=== PATIENT | female | born 1995 | race African-American/Black ===

== ENCOUNTER 2023-06-27 00:19 | Inpatient (IN) | payer OTHER, SELFPAY ==
[2023-06-27] VITALS (35 sets, daily range): BP systolic 87–146; BP diastolic 41–109; PULSE 26–151; RESP 16–18; TEMP 36.7–37.5; O2SAT 78–100
[2023-06-27] MEDS: LACTATED RINGERS 1,000 ML 125 ML IV CONT (00:44)
[2023-06-27] MEDS: OXYTOCIN 30 UNITS/NS 500 ML 30 UNITS/500 ML BAG 999 UNITS IV CONT (00:50)
--- NOTE | 2023-06-27 00:52 | PM.OBPRVD ---
OB - Delivery Note Procedure Delivery date: 06/27/23 Procedure: Induction method: None Delivery monitor: External FHT and External Uterine Route of delivery: Episiotomy description: None Laceration Description: None Quantitative Blood Loss (ml): 100 Anesthesia type: None Disposition: Floor [place] Baby Date of : 06/27/23 Time of : 00:44 Weeks of gestation at delivery: 38 gender: Female presentation: vertex score one minute: 8 score five minutes: 9
--- NOTE | 2023-06-27 00:55 | WPDHPUPDATE1 ---
History and Physical Update Update Date/Time: 06/27/23 00:55 History and Physical has been reviewed, including an updated exam of the patient. There are NO changes in the patient's condition. Risks, benefits, and alternatives have been discussed and questions answered. Patient agrees to proceed with procedure.
[2023-06-27 01:00] LABS: Basophils Percent Auto 0.2 % (0.2-1.2); Eosinophils Percent Auto 0.1 % (0-4.4); Hematocrit 30.9 % (37.0-47.0); Hemoglobin 10.4 g/dL (12.0-15.0); Immature Granulocyte Absolute 0.09 K/mm3 (0.00-0.031); Immature Granulocyte Percent A 0.6 % (0-0.5); Lymphocytes Absolute Auto 1.53 K/mm3 (0.9-3.2); Lymphocytes Percent Auto 9.6 % (18.3-44.2); Mean Corpuscular HGB Conc 33.7 g/dl (32-36); Mean Corpuscular Hemoglobin 31.1 pg (26-34); Mean Corpuscular Volume 92.5 fl (80-100); Mean Platelet Volume 10.3 fl (7.4-10.4); Monocytes Absolute Auto 0.9 K/mm3 (0.1-0.6); Monocytes Percent Auto 5.7 % (2.6-8.5); Neutrophils Absolute Auto 13.4 K/mm3 (1.3-6.7); Neutrophils Percent Auto 83.8 % (45.5-73.1); Platelet Count Result 285 k/mm3 (150-375); Red Blood Count 3.34 M/mm3 (4.2-5.4); Red Cell Distribution Width 13.3 % (11.5-14.5)
[2023-06-27] MEDS: OXYTOCIN 30 UNITS/NS 500 ML 30 UNITS/500 ML BAG 125 UNITS IV CONT (01:25)
--- NOTE | 2023-06-27 01:35 | LDADM ---
This patient, Ruby Guillen, was admitted to Labor/Delivery/Recovery 106 on 06/27/23 at 00:19. Plans for labor, pain management and were discussed with patient. Patient/family oriented to hospital policies and general routines including ID bracelet, bed and alarms, visiting hours, pain management, procedures, bathroom and other care routines, personal items, smoking policy, room service/diet and guest tray routines, infant security routines, and visiting hours. Patient/Family are encouraged to report perceived risks to care and to ask questions if they do not understand what they are told or what they should do. See OBIX for further documentation.
[2023-06-27] MEDS: KETOROLAC 30 MG/ML VIAL (*BKC) IV PUSH (01:50)
--- NOTE | 2023-06-27 01:55 | PC.NURSE ---
Patient refused NORCO because she didnt want to be sleepy. Patient rated pain time of Toradol between a 5-7.
[2023-06-27] MEDS: ACETAMINOPHEN 325 MG TABLET 650 MG PO ×2 (03:55→12:18)
[2023-06-27] MEDS: MULTIVIT/MIN/PREN/FOL AC/IRON TABLET 1 TAB PO (07:33)
[2023-06-27] MEDS: IBUPROFEN 600 MG TABLET PO ×2 (07:33→18:28)
[2023-06-27] MEDS: DOCUSATE SODIUM 100 MG CAPSULE PO (07:33)
[2023-06-27 12:36] LABS: Rapid Plasma Reagin Non-Reactive (NonReactive)
--- NOTE | 2023-06-27 16:25 | PC.NURSE ---
[id number] Purposefully rounded to assess needs. Mother verbalizes she is able to independently latch infant with appropriate positioning/alignment. She denies any nipple discomfort and is responsively . is currently meeting outcomes for weight, output, jaundice and feeding frequencies of 8-12 times in 24 hours. Mother declines any additional assistance/education at this time. Mother is encouraged to call for assistance if her doesn?t latch, how to visualize swallowing, there is discomfort with latching, protecting the nipple with a deep latch avoided shallow misshaped nipples. Mother voiced understanding of information shared and is confident. Infant has had 3 voids and 4 stools since and mother breastfed her first child for 15 months.
[2023-06-28 01:25] VITALS: BP 90/49; PULSE 61; RESP 16; TEMP 36.9; O2SAT 97
[2023-06-28 05:07] LABS: Hematocrit 27.9 % (37.0-47.0); Hemoglobin 9.2 g/dL (12.0-15.0)
[2023-06-28 07:45] VITALS: BP 120/72; PULSE 68; RESP 18; TEMP 37.3; O2SAT 100
[2023-06-28] MEDS: POLYSACCHARIDE IRON COMPLEX 150 MG CAPSULE PO ×2 (08:41→15:51)
[2023-06-28] MEDS: DOCUSATE SODIUM 100 MG CAPSULE PO ×2 (08:42→15:51)
[2023-06-28] MEDS: MULTIVIT/MIN/PREN/FOL AC/IRON TABLET 1 TAB PO (08:42)
[2023-06-28] MEDS: IBUPROFEN 600 MG TABLET PO ×3 (08:42→21:43)
--- NOTE | 2023-06-28 11:05 | PC.NURSE ---
Patient viewed the discharge video Mother & Baby Care, The First Two Weeks . Patient was given the opportunity and encouraged to ask questions. Patient verbalized understanding of information shared and has been given the mother/baby guide for home reference.
--- NOTE | 2023-06-28 13:42 | PC.NURSE ---
[id number] Consulted with patient to assess needs related to . Mother led conversation with her experience with feeding baby so far. Mother works well with her infant. Reviewed working with a infant, supporting breast, good positioning and protecting the nipples with an optimal deep latch. Encouraged responding to feeding cues and frequencies of feeding 8-12 times in 24 hours (approximately 2-3 hours), duration of feedings, milk production, intake/output feeding sheet and signs of adequate intake encouraging swallowing at the breast. Reviewed positioning and alignment, supporting breast, off-centered (asymmetrical latch) and leading with the chin with big, open, wide gape for a deeper latch. Infant latched optimally to the right breast in cross cradle position. Education given to mother of how to visualize suck/swallow ratios, listen for drinking at the breast as demonstrates very well. was able to maintain latch without discomfort to mother. Nipple care reviewed with optimal latch, good positioning and using clean hands when feeding her infant and touching her breast. Resources used to facilitate learning were used from the mom and baby guide. Mother voiced understanding of the education shared, to call for assistance if the infant does not latch or if there is discomfort with . Reported to the primary RN.
[2023-06-28 21:34] VITALS: BP 108/46; PULSE 71; RESP 18; TEMP 37; O2SAT 97
--- NOTE | 2023-06-29 07:41 | PM.OBPNVD ---
OB - PN: Subj Subjective Date/time seen: 06/29/23 07:41 Interval history: pp day 2 doing well, no pain would like d/c home OB - PN: Obj Data Labs 06/28/23 04:34 OB - PN A/P Plan day: 2 Plan: routine care Time Spent With Patient Time: Total time spent is greater than 50% in coordination of care (as documented) at patient's floor/unit and/or counseling patient: Review of Systems Review of Systems: All systems reviewed & are unremarkable except as noted in HPI and below Exam Const: General: cooperative, healthy appearing and comfortable Resp: Effort & Inspection: normal respiratory effort Cardio: Rate: regular rate Rhythm: regular rhythm GI: Other: soft Skin: General skin exam: no rashes or lesions noted Neuro: General: patient oriented x3 Extrem: Right lower extremity: normal to inspection Left lower extremity: normal to inspection Psych: Appearance: grossly normal
--- NOTE | 2023-06-29 07:43 | PM.OBDSVD ---
DS: Admitting Diagnosis Discharge Date 06/29/23 Admitting Diagnosis labor DS: Discharge Diagnosis Discharge Diagnosis (1) Vaginal delivery: Code(s): O80 - Encounter for full-term uncomplicated delivery Status: Acute OB - DS: Summary OB Procedures : None OB Procedures Intrapartum: Spontaneous Vag Delivery OB Procedures: : None Time Spent with Patient Time attestation: Total time spent providing and/or coordinating discharge services: Discharge Plan Discharge Attending physician on discharge: Fidelia Cuellar Discharging Clinician: Jazmyn Casey Patient Disposition: Home, Self-Care Activity: pelvic rest Diet: regular Patient Instructions: Antibiotic Form Stand Alone Forms: General Discharge Information Follow-up/Referrals: Fidelia Cuellar MD [Physician] - 1 Week Discharge Medications: Continued ferrous sulfate 325 mg (65 mg iron) Tablet 325 mg PO DAILY Classic 28 mg iron- 800 mcg Tablet 1 tablet PO DAILY Date of admission: 06/27/23 00:19 Primary Care Provider: PHYSICIAN,BLACK TOP MACHINE OPERATOR Admitting Provider: Fidelia Cuellar Attending physician on admission: Fidelia Cuellar Condition: Stable
--- NOTE | 2023-06-29 08:00 | PC.NURSE ---
PT introductions made and plan of care discussed per post , pain management, daily care activities and pending discharge to home. PT sole recipients of such instructions and no barriers to learning identified at this time. PT received such instructions per one to one discussion, mom baby care guide and demonstrations this shift. PT verbalized understanding of such care.
[2023-06-29 08:05] VITALS: BP 119/74; PULSE 64; RESP 18; TEMP 36.9; O2SAT 100
[2023-06-29] MEDS: DOCUSATE SODIUM 100 MG CAPSULE PO (09:54)
[2023-06-29] MEDS: POLYSACCHARIDE IRON COMPLEX 150 MG CAPSULE PO (09:55)
[2023-06-29] MEDS: MULTIVIT/MIN/PREN/FOL AC/IRON TABLET 1 TAB PO (09:55)
[2023-06-29] MEDS: ACETAMINOPHEN 325 MG TABLET 650 MG PO (09:55)
[2023-06-29 09:56] VITALS: PULSE 64; RESP 18; O2SAT 100
[2023-06-29] MEDS: IBUPROFEN 600 MG TABLET PO (09:56)
--- NOTE | 2023-06-29 11:45 | PC.NURSE ---
Patient was given the opportunity to view the discharge video Mother & Baby Care, The First Two Weeks and to ask questions. Patient declined viewing the video and has been given the mother/baby guide for home reference. PT received discharge instructions per protocol and verbalized understanding of such instructions.
--- NOTE | 2023-06-29 12:54 | PC.NURSE ---
PT discharged to home ambulatory accompanied by spouse and and taken to waiting car. Follow up appts confirmed
--- NOTE | 2023-06-29 15:28 | PC.NURSE ---
[id number] Mother led the conversation with her experience and plan to feed her so far and her ability to independently latch optimally without discomfort. Mother is feeding appropriately for growth of and understands stimulating infant to eat if needed. has had appropriate feedings in the last 24 hours meets the outcomes for weight (9.53%loss), output and jaundice at this time. Mother states she is confident to continue effectively her at home and she feels her milk has increased, when to call for assistance and denies any additional assistance or education at this time. Reinforced understanding of milk production, transition of milk, signs of adequate intake, transition of stool, prevention/relief of engorgement, plugged ducts, mastitis, responsive watching for feeding cues, the different methods of stimulating to breastfeed 2-3 hours after the start of the last feeding, community resources, when to call a provider using the resource of the mom and baby guide. Mother voiced understanding of the education shared.
[2023-06-30 09:25] VITALS: BP 125/72; PULSE 70; RESP 18; TEMP 37.2; O2SAT 100
== END 2023-06-29 12:54 | disposition home or self-care (01) | DRG 560 ==
LOC: ANHLDR 00:32 → ANHOB2 03:32
PROVIDERS: Admitting Provider Obstetrics & Gynecology; Visit Provider Obstetrics & Gynecology
DX: O62.3 Precipitate labor (principal); Z37.0 Single live birth; Z3A.39 39 weeks gestation of pregnancy
CPT/HCPCS: 36415; 85014; 85018; 85025; 86592; 86850; 86900; 86901; A9270; J1885; J2590; J7120

== ENCOUNTER 2025-02-06 11:42 | Outpatient (CLI) | payer SELFPAY ==
--- NOTE | ~2025-02-06 | XR_ITS ---
Clinical Indication: Preoperative evaluation PA and lateral views of the chest: Comparison: None Findings: The lungs are clear, without evidence of focal consolidation or pleural effusion. Cardiome diastinal silhouette is within normal limits. Bones and soft tissues are unremarkable. Impression: Normal chest. Reviewed, dictated and finalized at location . Impression: Normal chest.
--- OUTSIDE RECORDS SUMMARY | 2025-02-06 13:25 | XMS_ITS | Data Portability ---
[facility] Address [address] [place] [address] Assessment No assessment recorded. Plan of Treatment Reminders Order Date Submit Date Provider Last Modified By Organization Details Last Modified Time Details Appointments None recorded. Lab MMR immunity, serum 2016 017 [facility], [address] [place] [address], [address], [place], [address], 7 17:09:38 hepatitis B surface Ab, quantitati ve, serum 2016 017 [facility], [address] [place] [address], [address], [place], [address], 7 17:09:39 HBsAg (hepatitis B surface Ag), EIA, serum 2016 017 [facility], [address] [place] [address], [address], [place], [address], 7 11:20:25 hepatitis B surface Ab, qualitativ e, serum 2016 017 [facility], [address] [place] [address], [address], [place], [address], 7 17:09:39 hepatitis panel (A+B+C), acute, serum 2016 017 [facility], [address] [place] [address], [address], [place], [address], 7 17:09:37 vzv (varicella -zoster) igg+igm Ab, serum 2016 017 [facility], [address], [address], [place], [address], 7 17:09:38 PPD (purified protein derivative ), skin test 2016 017 [facility] In-Office Order, Internal Use Only DO Not Attach Compendium DO Not Attach Compendium, Do Not Delete/merge, [id number] 7 09:29:12 Referral None recorded. Procedures None recorded. Surgeries None recorded. Imaging None recorded. Medication Orders None recorded. Patient TargetsNo targets recorded. Patient Instructions Encounter Date Encounter Id Patient Instructions Last Modified By Organization Details Last Modified Time 05/17/2017 [id number] CCome in on May 23 , free visit , no charge . See Myra for a tb skin test , return to have it read on [email or web address] Not available 05/17/2017 13:50:22 Reason for Referral None Reported. Results Created Date Observation Date Name Description Value Unit Range Abnormal Flag Note LastModifiedBy Organization Detail LastModifiedTime 06/17/20 17 06/18/2017 hepat itis panel (A+B+ C), acute , serum hep A Ab, IgM NEGATI VE negati ve Not Available [facility] ([facility]) [address] [place], [address], 06/20/2017 17:09:37 06/17/20 17 06/18/2017 hepat itis panel (A+B+ C), acute , serum HBsAg screen NEGATI VE negati ve Not Available [facility] ([facility]) [address] [place], [address], 06/20/2017 17:09:37 06/17/20 17 06/18/2017 hepat itis panel (A+B+ C), acute , serum hep B core Ab, IgM NEGATI VE negati ve Not Available [facility] ([facility]) [address] [facility] [place], [address], 06/20/2017 17:09:37 06/17/20 17 06/18/2017 hepat itis panel (A+B+ C), acute , serum hep C virus Ab <0.1 S/co_ ratio 0.0-0. 9 NEGAT KAMRAN: < 0.8 INDET ERMIN ATE: 0.8 - 0.9 POSIT KAMRAN: > 0.9 [facility] RECOM MENDS THAT A POSIT KAMRAN HCV ANTIB LENNY RESUL T BE FOLLO WED UP WITH A HCV NUCLE IC ACID AMPLI FICAT ION TEST ([phone]). Not Available [facility] ([facility]) [address] [facility], [place], [address], 06/20/2017 17:09:37 06/17/20 17 06/18/2017 MMR immun ity, serum rubella antibodies, IgG 6.73 index immune >0.99 NON-I MMUNE <0.90 EQUIV OCAL 0.90 - 0.99 IMMUN E >0.99 Not Available [facility] ([facility]) [address] [facility], [place], [address], 06/20/2017 17:09:37 06/17/20 17 06/18/2017 MMR immun ity, serum rubeola Ab, IgG 165.0 AU/mL immune >29.9 NEGAT KAMRAN <25.0 EQUIV OCAL 25.0 - 29.9 POSIT KAMRAN >29.9 PRESE NCE OF ANTIB ODIES TO RUBEO LA IS PRESU MPTIV E EVIDE NCE OF IMMUN ITY EXCEP T WHEN ACUTE INFEC TION IS SUSPE CTED. Not Available [facility] ([facility]) [address] [facility], [place], [address], 06/20/2017 17:09:37 06/17/20 17 06/18/2017 MMR immun ity, serum mumps abs, IgG >300.0 AU/mL immune >10.9 NEGAT KAMRAN <9.0 EQUIV OCAL 9.0 - 10.9 POSIT KAMRAN >10.9 A POSIT KAMRAN RESUL T GENER ALLY INDIC ATES PAST EXPOS URE TO MUMPS VIRUS OR PREVI OUS VACCI NATIO N. Not Available [facility] ([facility]) [address] [place], [address], 06/20/2017 17:09:37 06/17/20 17 06/18/2017 vzv (vari cameron -zost er) igg+i gm Ab, serum varicella zoster IgG <135 index immune >165 below low normal NEGAT KAMRAN <135 EQUIV OCAL 135 - 165 POSIT KAMRAN >165 A POSIT KAMRAN RESUL T GENER ALLY INDIC ATES EXPOS URE TO THE PATHO GEN OR ADMIN ISTRA TION OF SPECI FIC IMMUN OGLOB ULINS , BUT IT IS NOT INDIC ATION OF ACTIV E INFEC TION OR STAGE OF DISEA SE. Not Available [facility] ([facility]) [address] [place], [address], 06/20/2017 17:09:38 06/17/20 17 06/20/2017 vzv (vari cameron -zost er) igg+i gm Ab, serum varicella-zo ster Ab, IgM <0.91 index 0.00-0 .90 NEGAT KAMRAN <0.91 BORDE RLINE 0.91 - 1.09 POSIT KAMRAN >1.09 Not Available [facility] ([facility]) [address] [place], [address], 06/20/2017 17:09:38 06/17/20 17 06/18/2017 hepat itis B surfa ce Ab, quali tativ e, serum hep B surface Ab, qual NON REACTI VE NON REACT KAMRAN: INCON SISTE NT WITH IMMUN ITY, LESS THAN 10 MIU/M L REACT KAMRAN: CONSI STENT WITH IMMUN ITY, GREAT ER THAN 9.9 MIU/M L Not Available [facility] ([facility]) [address] [place], [address], 06/20/2017 17:09:39 06/17/20 17 06/18/2017 hepat itis B surfa ce Ab, quant itati ve, serum hepatitis B surf Ab quant 3.8 mIU/m L immuni ty>9.9 below low normal STATU S OF IMMUN ITY ANTI- HBS LEVEL ----- ----- ----- --- ----- ----- ---- INCON SISTE NT WITH IMMUN ITY 0.0 - 9.9 CONSI STENT WITH IMMUN ITY >9.9 Not Available [facility] ([facility]) [address] [facility], [place], [address], 06/20/2017 17:09:39 Result Notes None recorded. Problems Name Problem SNOMED Code Status Onset Date Resolution Date Notes Provider Name and Address Organization Details Recorded Time Screening for disorder Active 2016 Myke Livingston PA-C Attn: Jamie munoz,[address] [place], [address], [place] - [facility] 7 11:19:21 Tuberculosis screening Active 2016 Myek Livingston PA-C Attn: Jamie munoz,[address] [place], [address], [place] [facility] 7 11:30:12 Requires course of hepatitis B vaccination 906274102 Active 2016 Myke Livingston PA-C Attn: Jamie munoz,[address] [place], [address], [place] [facility] 7 13:02:37 Requires varicella vaccination 920787986 Active 2016 Myke Livingston PA-C Attn: Kyrageoffrey munoz,[address] [place], [address], [place] [facility] 7 13:04:06 Requires a hepatitis A vaccination 010741061 Active 2016 Myke Livingston PA-C Attn: Kyrageoffrey munoz,[address] [place], [address], [place] [facility] 7 17:00:15 Problem Notes None recorded. Medical Equipment None Reported. Allergies Allergen ID Allergen Name Allergen Category Reaction Reaction Severity Criticality Documentation Date Start Date Code Code System Note Provider Name and Address Organization Details Recorded Time 17632 Product containin g penicilli n (product) medicatio n hives severe Not available 05/17/2017 [id number] SNOMED Not Available Not Available Not Available Medications Name Sig Start Date Stop Date Status Note LastModified by Organization Details LastModified Time azithromycin 250 mg tablet active Not Available Not Availabl e Not Available prednisone 20 mg tablet TAKE 1 TABLET BY MOUTH EVERY DAY FOR 5 DAYS active Not Available Not Available No t Available sulfamethoxazol e 800 mg-trimethoprim 160 mg tablet TAKE 1 TABLET BY MOUTH EVERY 12 HOURS active Not Available Not Available No t Available Microgestin FE 11/26 (28) 1 mg-20 mcg (21)/75 mg (7) tablet Take 1 tablet every day by oral route. active Not Available Not Available No t Available cephalexin 500 mg capsule TAKE 1 CAPSULE BY MOUTH THREE TIMES DAILY FOR 7 DAYS active Not Available Not Available No t Available doxycycline hyclate 100 mg tablet TAKE 1 TABLET BY MOUTH TWICE DAILY active Not Available Not Available No t Available Vitals Date Recorded Body height Body mass index (BMI) Body weight Oxygen saturation Oxygen saturation in Arterial blood by Pulse oximetry Heart rate Body temperature Systolic blood pressure Diastolic blood pressure Provider Name and Address Organization Details Last Updated DateTime 7 166.37 cm 19.8 kg/m2 26223.6 8 g 98 % 98 % 78 /min 98.5 [degF] 110 mm[Hg] 72 mm[Hg] Myra Solis MA [facility] 7 11:05:56 Social History Question Answer Notes LastModified by Organizat ion Details LastModified Time Tobacco Smoking Status Never Smoker Myra Solis MA null, [place] - [facility] 05/17/2017 11:00:29 How Much Tobacco Do You Smoke? No Information not available 05/17/2017 How Many Years Have You Smoked Tobacco? 0 Information not available 05/17/2017 Sex: Unknown Functional Status None recorded. Mental Status None recorded. Family History Relationship Description Onset Age of this Age Resolved Age Notes LastModified by Organization Details LastModified Time Father Diabetes mellitus [email or web address] Not available 2016 11:00:18 Medical History Condition Response Coronary Artery Disease N Other N High Blood Pressure N Atrial Fibrillation N Kidney or Bladder Problems N Thyroid Problems N GI Problems N Depression N COPD N Blood Clots N Skin Problems N Anemia N Heart Attack ([place]) N Anxiety Disorder N Diabetes N Muscle, Joint, or Bone Problems N Seizures/Epilepsy N Acid Reflux (GERD) N Cancer N Stroke N Asthma N Allergies N High Cholesterol N Hepatitis N Liver Disease N Headaches N Heart Failure N Osteoporosis N Gynecological History Statement/Question Response Flow Moderate Date of LMP 05/09/2017 Frequency of Cycle (Q days) 28 Menses Monthly Y Duration of Flow (days) 4 Current Control Method BCPs LMP Definite Obstetrics History GPAL:G 0 P 0 0 0 0 Immunizations Vaccine Type Date Status Note Provider Nam e and Address Organization Details Recorded Time Hep B, adult 06/27/2017 completed Not Available [facility] 11/24/2019 02:34:53 Hep A, adult 07/04/2017 completed Not Available [facility] 11/24/2019 02:33:33 Hep A, adult 11/29/2017 completed Not Available [facility] 11/24/2019 02:34:50 COVID-19, mRNA, LNP-S, PF, 50 mcg/0.5 mL 12/14/2023 completed Zoe Archer MA [facility], [place] - [facility] 12/14/2023 15:01:21 Past Encounters Encounter ID Performer Location Encounter Start Date Encounter Closed Date Diagnosis/Indication Diagnosis SNOMED-CT Code Diagnosis ICD10 Code Diagnosis Note [id number] GENA Mcneil (Adult Med) [address] [place] [phone] 05/17/2017 10:37:08 05/17/2017 11:36:17 Screening for disorder 077119427 Z13.9 Tuberculos is screening 499634416 Z11.1 [id number] BERTIN Adkins (Adult Med) [address] [place] [phone] 06/27/2017 12:57:58 06/27/2017 14:28:54 Requires course of hepatitis B vaccination 784455965 Z28.3 we will not give the varivax today : patient states she is allergic to it . Requires v aricella vaccination 079584724 Z28.3 [id number] BERTIN Adkins (Adult Med) [address] [place] [phone] 07/04/2017 16:55:49 07/04/2017 18:05:05 [id number] BERTIN Adkins (Adult Med) [address] [place] [phone] 11/29/2017 13:09:34 11/29/2017 13:45:59 Requires a hepatitis A vaccination 938662121 Z28.3 [id number] BERTIN Ching (Peds) [address] [place] [phone] 12/14/2023 09:55:40 12/15/2023 11:46:58 Administration of SARS-CoV-2 mRNA vaccine 0384222207 Z23 Health Concerns Section Related Observation LastModified by Organization Detai ls LastModified Time None Recorded Concern Status LastModified by Organization Details LastModified Time None Recorded Advance Directives Directive None Recorded Payers Encounter Date Sequence Insurance Name Policy Number Policy Medel Covered Member ID Medel Member ID Guarantor Name 06/27/2017 1 *SELF PAY* Osei Guillen 07/04/2017 1 *SELF PAY* Osei Guillen 11/29/2017 1 *SELF PAY* Osei Guillen 11/29/2017 1 [place] [employer] [place] [employer] Ruby Guillen [id number] Ruby Guillen 12/14/2023 1 [facility] - DOS ON OR AFTER 21 (MEDICAID REPLACEMENT - HMO) Ruby Guillen [id number] Ruby Guillen Notes Date Note Type Note Provider Name and Address Organization Details Recorded Time 05/17/2017 text/html starting Nursing School soon ... orientation 05/19 and 05/20 Myke Livingston PA-C Attn: Accounting[address] [facility], [place], [address], [facility] 05/17/2017 13:56:06 06/27/2017 text/html last varivax caused itching , swelling , redness bad , lasted a long time ... Myra Solis MA null, [place] - [facility] 06/27/2017 13:31:58 OBGyn Episode No OBEpisode recorded.
--- OUTSIDE RECORDS SUMMARY | 2025-02-06 13:25 | XMS_ITS | Data Portability ---
Author Organization [facility] Address [address] [place] [address] [place] [address] Assessment Encounter Date Assessment Date Assessment LastModified by Organization Details LastModified Time 06/14/2023 06/14/2023 Patient is ___weeks . Discussed plan. [facility] Not available 06/14/2023 14:05:26 Plan of Treatment Reminders Order Date Submit Date Provider Last Modified By Organization Details Last Modified Time Details Appointments None recorded. Lab drug screen, urine 2022 023 [facility], [address], [address], [place], [address], 17:40:27 Referral None recorded. Procedures None recorded. Surgeries None recorded. Imaging None recorded. Medication Orders doxycycline hyclate 100 mg tablet 2022 023 [facility] #[id number], [address], [place], [place], [id number], 3 23:24:03 Bactrim DS 800 mg-160 mg tablet 2022 023 [facility] #95507, [address], [place], [place], [phone], 3 23:24:04 Delores 0.35 mg tablet 2022 023 [facility] #04018, [address], [place], [place], [id number], 3 13:03:46 cephalexin 500 mg capsule 2022 023 [email or web address] #05784, [address], [place], [place], [id number], 12:42:38 Patient TargetsNo targets recorded. Patient InstructionsNo instructions recorded. Reason for Referral None Reported. Results Created Date Observation Date Name Description Value Unit Range Abnormal Flag Note LastModifiedBy Organization Detail LastModifiedTime 05/26/20 23 05/26/2023 US, obste tric, follo w-up No observ ation record ed. [email or web address] [address], [place], [address], 05/27/2023 12:06:21 05/26/20 23 05/26/2023 US, obste tric, follo w-up No observ ation record ed. [email or web address] [facility] [address], [place], [address], 05/26/2023 19:13:21 Result Notes None recorded. Problems Name Problem SNOMED Code Status Onset Date Resolution Date Notes Provider Name and Address Organization Details Recorded Time 42028778 Completed 202207/04/2023 Surendra rizzo, [facility] 3 14:49:10 Sickle cell trait 14885419 Active FOB neg. q trimester Surendra Andrade null, [facility] 3 14:49:04 Sickle cell trait 92858093 Completed FOB neg. q trimester Surendra Andrade null, [facility] 3 14:49:04 Problem Notes None recorded. Procedures Surgical History Date Name Laterality Status Provider Name and Address Organization Details Recorded Time 06/21/20 23 I&D completed Umu Hdz MD [address], [place], [address], [place] [facility] 06/21/2023 14:38:07 12/28/19 23 Date of Last Pap Smear completed Caridad Bonilla [facility] 12/28/2022 16:36:11 11/07/19 19 Orthopedic Surgery completed Caridad Bonilla [facility] 12/28/2022 16:38:26 11/07/19 19 termination of completed Caridad Bonilla [facility] 04/29/2023 13:46:19 Imaging Results Imaging Date Name Status LastModified by Organiz ation Details LastModified Time 05/26/2023 US, obstetric, follow-up completed [email or web address] [address], [place], [address], 05/27/2023 12:06:21 05/26/2023 US, obstetric, follow-up completed [email or web address] [facility] [address], [place], [address], 05/26/2023 19:13:21 Procedure Notes None recorded. Medical Equipment None Reported. Allergies Allergen ID Allergen Name Allergen Category Reaction Reaction Severity Criticality Documentation Date Start Date Code Code System Note Provider Name and Address Organization Details Recorded Time Product containin g penicilli n (product) medicatio n Not available Not available Not available 12/28/2022 11429 8001 SNOMED Caridad rizzo, [facility] 16:35:57 Medications Name Sig Start Date Stop Date Status Note LastModified by Organization Details LastModified Time azithromyci n 250 mg tablet TAKE 2 TABLETS (500 MG) BY ORAL ROUTE ONCE DAILY FOR 1 DAY THEN 1 TABLET (250 MG) BY ORAL ROUTE ONCE DAILY FOR 4 DAYS 04/29 completed Not Available Not Available Not Available ondansetron HCl 8 mg tablet Take by oral route for 12 days. 07/28 completed Not Available Not Available Not Available prednisone 20 mg tablet TAKE 1 TABLET BY MOUTH EVERY DAY FOR 5 DAYS 04/29 completed Not Available Not Available Not Available metronidazo le 500 mg tablet TAKE 1 TABLET BY MOUTH EVERY 12 HOURS 12/28 completed Not Available Not Available Not Available sulfamethox azole 800 mg-trimetho prim 160 mg tablet TAKE 1 TABLET BY MOUTH EVERY 12 HOURS active Not Available Not Available No t Available cephalexin 500 mg capsule TAKE 1 CAPSULE BY MOUTH THREE TIMES DAILY FOR 7 DAYS 07/28 completed Not Available Not Available Not Available norethindro ne (contracept halima) 0.35 mg tablet Take 1 tablet every day by oral route. active Not Available Not Available No t Available doxycycline hyclate 100 mg tablet TAKE 1 TABLET BY MOUTH TWICE DAILY active Not Available Not Available No t Available clindamycin phosphate 1 % topical solution APPLY TOPICALLY TO THE AFFECTED AREA TWICE DAILY 12/28 completed Not Available Not Available Not Available active Not Available Not Avai lable Not Available Vitals Date Recorded Body height Body mass index (BMI) Body weight Systolic blood pressure Diastolic blood pressure Provider Name and Address Organization Details Last Updated DateTime 06/07/2023 167.64 cm 23.7 kg/m2 52697.07 839 g 104 mm[Hg] 63 mm[Hg] [facility] 3 17:39:35 Date Recorded Body height Body mass index (BMI) Body weight Systolic blood pressure Diastolic blood pressure Provider Name and Address Organization Details Last Updated DateTime 06/14/2023 167.64 cm 23.6 kg/m2 24325.48 602 g 111 mm[Hg] 66 mm[Hg] [facility] 3 14:09:33 Date Recorded Body height Body mass index (BMI) Body weight Systolic blood pressure Diastolic blood pressure Provider Name and Address Organization Details Last Updated DateTime 06/21/2023 167.64 cm 23.9 kg/m2 57769.67 076 g 113 mm[Hg] 71 mm[Hg] [facility] 3 14:17:54 Date Recorded Body height Body mass index (BMI) Body weight Systolic blood pressure Diastolic blood pressure Provider Name and Address Organization Details Last Updated DateTime 07/28/2023 167.64 cm 21.1 kg/m2 53380.6 g 113 mm[Hg] 65 mm[Hg] Beverly Navarro [facility] 3 12:42:34 Date Recorded Body height Body mass index (BMI) Body weight Systolic blood pressure Diastolic blood pressure Provider Name and Address Organization Details Last Updated DateTime 09/27/2023 167.64 cm 19.5 kg/m2 72798.68 g 103 mm[Hg] 65 mm[Hg] Beverly Navarro [facility] 3 12:50:44 Social History Question Answer Notes LastModified by Organizat ion Details LastModified Time Tobacco Smoking Status Never Smoker Caridad rizzo, [facility] 12/28/2022 16:38:08 What Is Your Level Of Alcohol Consumption? None [email or web address] Information not available 12/28/2022 If You Are , What Was Your Level Of Alcohol Consumption Prior To ? Occasional [email or web address] Information not available 12/28/2022 Are You Blind Or Do You Have Difficulty Seeing? No [email or web address] Information n ot available 12/28/2022 What Is Your Level Of Caffeine Consumption? Moderate [email or web address] Information not available 12/28/2022 How Much Tobacco Do You Chew? None [email or web address] Information not available 12/28/2022 In The 14 Days Before Symptom Onset, Have You Had Close Contact With A Laboratory-confirm ed COVID-19 While That Case Was Ill? No [email or web address] Information n ot available 12/28/2022 In The 14 Days Before Symptom Onset, Have You Had Close Contact With A Person Who Is Under Investigation For COVID-19 While That Person Was Ill? No [email or web address] Information not available 12/28/2022 Have You Been To An Area Known To Be High Risk For COVID-19? No [email or web address] Information not available 12/28/2022 Are You Deaf Or Do You Have Serious Difficulty Hearing? No [email or web address] Information not available 12/28/2022 What Type Of Diet Are You Following? REGULAR [email or web address] Information n ot available 12/28/2022 What Is The Highest Grade Or Level Of School You Have Completed Or The Highest Degree You Have Received? [id number] [email or web address] Information not available 12/28/2022 What Is Your Occupation? Nurse [email or web address] Information not available 12/28/2022 Are There Any Guns Present In Your Home? No [email or web address] Information not available 12/28/2022 Do You Use Protection During Sex? Usually [email or web address] Information not available 12/28/2022 Do You Use Your Seat Belt Or Car Seat Routinely? Yes [email or web address] Information not available 12/28/2022 Do You Have Smoke And Carbon Monoxide Detectors In Your Home? Yes [email or web address] Information not available 12/28/2022 How Much Tobacco Do You Smoke? No Information not available 12/28/2022 Do You Feel Stressed (tense, Restless, Nervous, Or Anxious, Or Unable To Sleep At Night)? [id number] [email or web address] Information not available 12/28/2022 Do You Use Any Illicit Or Recreational Drugs? No [email or web address] Information not available 12/28/2022 Do You Use Sunscreen Routinely? No [email or web address] Information not available 12/28/2022 Has Tobacco Cessation Counseling Been Provided? No [email or web address] Information not available 12/28/2022 Have You Used IV Drugs? No [email or web address] Information not available 12/28/2022 Do You Or Have You Ever Used Any Other Forms Of Tobacco Or Nicotine? No [email or web address] Information not available 12/28/2022 Sex: Unknown Functional Status Question Answer Note LastModified by Organizat ion Details LastModified Time Do you have difficulty walking or climbing stairs? No [email or web address] Information not available 12/28/2022 Are you able to walk? YESWOREST [email or web address] Information not available 12/28/2022 Are you able to care for yourself? Yes [email or web address] Information not available 12/28/2022 Do you have difficulty dressing or bathing? No [email or web address] Information not available 12/28/2022 What is your exercise level? Moderate Information not available 12/28/2022 Mental Status None recorded. Family History Nothing Reported. Medical History Condition Response Allergies (Food, seasonal, environmental ) N Other Y Breast Cancer N Drug/Latex Allergies/Reactions N Blood Transfusion N Lung Disease N Dermatologic Disorders N Defects or Inherited Disease Y Breast Problem N Gestational Diabetes N Hematologic disorders N Anesthesia Complications N History of STI N Deep Vein Thrombosis N Polycystic ovary syndrome N Anxiety Disorder N Autoimmune disease N Arthritis N Polyps N Infertility N History of abnormal pap N Acid Reflux (GERD) N Cancer N Varicosities N Stroke N Neurologic/Epilepsy N Endometriosis N High Cholesterol N Fibromyalgia N Headaches N Kidney Disease N Heart Problems N Kidney or Bladder Problems N Thyroid Problems N GI Problems N Eating Disorder N Anemia N Art (IVF or FET) N Psychiatric Illness N Ovarian Cancer N Diabetes N Pulmonary (TB, Asthma) N Hepatitis/Liver Disease N No Past Medical History Y Eczema N Urinary Tract Infection N Abuse/Domestic Violence N Asthma N Trauma/Violence N Depression/ depression N Heart Disease N Pre-Eclampsia N Hypertension N Osteoporosis N Thrombophilias N Gynecological History Statement/Question Response Date of LMP 09/27/2022 On BCP's at Conception? N N Was last menstrual period normal Y STIs/STDs N HPV Vaccine Y Duration of Flow (days) 4 Current Control Method None Age at First Child 25 Frequency of Cycle (Q days) 5 Sexually Active? Y Age of first menstrual cycle 17 Date of Last Pap Smear 12/28/2022 Sexual Problems? N Desired Control Method None LMP Approximate N Obstetrics History GPAL:G 3 P 2 0 1 2 Type Value Full Term 2 Induced 1 Living 2 Total 3 Past Encounters Encounter ID Performer Location Encounter Start Date Encounter Closed Date Diagnosis/Indication Diagnosis SNOMED-CT Code Diagnosis ICD10 Code Diagnosis Note [id number] Maria Teresa Yun [facility] [address] [address] 12/28/2022 15:37:58 12/28/2022 17:36:37 screening 704454129 Z36.82 [id number] Kirsten Arevalo [facility] [address] [address] 12/28/2022 15:38:16 12/29/2022 17:16:01 Amenorrhea 81119918 N91.2 Gynecologi c examination 90425580 Z11.3 test positive 337919542 Z32.01 Risk factors addressed: Tobacco Cessation, Safe Sexual Practices, environmen stacie, work hazards, travel restrictio ns, seat belt use.Eat a health well balanced diet, avoid alcohol, tobacco, and street drugs.Enga ge in daily low impact exercise, avoid temperatur e extremes, and cat, rodent, and bird feces.Avoi d travel to areas where zika virus is a concern.Of fered cf/sma/nip t. Desires draw today. Handouts given and discussed with patient.Ch ildbirth classes recommende d.New OB sheet given.New OB trudy.If previous , counseling .Pt verbalizes that she understand s the importance of above instructio ns.All questions were answered.P atient reminded to have annual well woman examinatio n and address [facility] . [id number] Ge Cuellar MD [facility] [address],[place] [address] 01/27/2023 12:18:25 01/27/2023 13:16:04 Routine care 554430544 Z34.82 [id number] [facility] [address],[place] [address] 02/15/2023 14:25:34 02/15/2023 15:38:10 screening 006081583 Z36.3 [id number] Kirsten Salmeronrell [facility] [address],[place] [address] 02/15/2023 14:25:49 02/16/2023 10:24:44 Routine care 766433871 Z34.92 [id number] [facility] [address],[place] [address] 03/21/2023 14:35:03 03/21/2023 15:11:04 condition affecting obstetrical care of mother 161946721 O35.8XX0 Z3A.25 [id number] Ge Cuellar MD [facility] [address],[place] [address] 03/21/2023 14:35:33 03/21/2023 16:46:14 Upper respiratory infection 86642616 J06.9 Routine an tenatal care 603742106 Z34.82 [id number] Umu Hdz MD [facility] [address],[place] [address] 04/12/2023 13:48:52 04/12/2023 15:18:09 Routine care 493781947 Z34.83 Sickle cell trait 204005 00 D57.3 [id number] Jazmyn Casey [facility] [address],[place] [address] 04/29/2023 13:50:58 04/29/2023 14:23:26 Routine care 128969090 Z34.93 [id number] Jazmyn Casey [facility] [address],[place] [address] 05/13/2023 12:38:15 05/13/2023 13:14:20 Routine care 796355857 Z34.93 [id number] Ayanna Agustin [facility] [address],[place] [address] 05/26/2023 16:22:02 05/27/2023 10:29:33 condition affecting obstetrical care of mother 753080263 O35.8XX0 Z3A.34 [id number] Ge Cuellar MD [facility] [address],[place] [address] 05/30/2023 12:32:15 05/30/2023 13:17:42 Routine care 092941720 Z34.82 [id number] MD Mitchell Reyes [address],[place] [address] 06/07/2023 17:15:41 06/08/2023 15:09:27 Routine care 025296190 Z34.83 [id number] MD Mitchell Reyes [address] [place] [address] 06/14/2023 14:04:49 06/14/2023 15:07:34 Routine care 738847381 Z34.83 Abscess of vulva 0293970 1 N76.4 [id number] MD Mitchell Reyes [address],[place] [address] 06/21/2023 14:06:47 06/21/2023 15:13:31 Abscess of vulva 21777417 N76.4 [id number] Ge Cuellar MD [facility] [address] [address] 07/28/2023 12:34:20 07/28/2023 13:11:34 Contraception care management 560826695 Z30.9 this patient is a 28-year-ol d female who presents for care. She is not bleeding, she has not had intercours e. She is breastfeed ing. Her baby is doing well. She is doing well. She is going to take the progestero ne only pill. She will follow-up in 2 months for well-woman exam. [id number] Ge Cuellar MD [facility] [address],[facility] [place] [address] 09/27/2023 12:19:36 09/28/2023 08:49:34 Hidradenitis suppurativa 95213979 L73.2 28-year-ol d female who presents for painful vulvar bumps and abscesses. She is recurrence of vulvar abscesses in 3 different places on the vulva. the exam. She has 3 vulvar abscesses in various states of healing. One appears to tunnel. She states that has a tunneled area. They are recurrentl y becoming infected. They cause a raised painful bump. We agreed to treat with antibiotic s. She will treat with Bactrim for 1 week and then start doxycyclin e every day. . We spent over 20 minutes face-to-fa ce. More than 50% was counseling . Health Concerns Section Related Observation LastModified by Organization Detai ls LastModified Time None Recorded Concern Status LastModified by Organization Details LastModified Time None Recorded Advance Directives Directive None Recorded Payers Encounter Date Sequence Insurance Name Policy Number Policy Medel Covered Member ID Medel Member ID Guarantor Name 06/07/2023 1 [facility] ON OR AFTER 05/07/21 (MEDICAID REPLACEMENT - HMO) [id number] Ruby Guillen [id number] Ruby Guillen 06/14/2023 1 [facility] ON OR AFTER 21 (MEDICAID REPLACEMENT - HMO) [id number] Ruby Guillen [id number] Ruby Guillen 06/21/2023 1 [facility] ON OR AFTER 05/07/21 (MEDICAID REPLACEMENT - HMO) [id number] Ruby Guillen [id number] Ruby Guillen 07/28/2023 1 [facility] ON OR AFTER 05/07/21 (MEDICAID REPLACEMENT - HMO) [id number] Ruby Guillen [id number] Ruby Guillen 09/27/2023 1 [facility] ON OR AFTER 05/07/21 (MEDICAID REPLACEMENT - HMO) [id number] Ruby Guillen [id number] Ruby Guillen Notes Date Note Type Note Provider Name and Address Organization Details Recorded Time 07/28/2023 text/html this patient is a 28-year-old female who presents for care. She is not bleeding, she has not had intercourse. She is . Her baby is doing well. She is doing well. She is going to take the progesterone only pill. She will follow-up in 2 months for well-woman exam. Ge Cuellar MD [address], [place], [address], [facility] 07/28/2023 13:07:19 09/27/2023 text/html 28-year-old fema corrina who presents for painful vulvar bumps and abscesses. She is recurrence of vulvar abscesses in 3 different places on the vulva. the exam. She has 3 vulvar abscesses in various states of healing. One appears to tunnel. She states that has a tunneled area. They are recurrently becoming infected. They cause a raised painful bump. We agreed to treat with antibiotics. She will treat with Bactrim for 1 week and then start doxycycline every day. . We spent over 20 minutes [id number]. More than 50% was counseling. Ge Cuellar MD [address], [place], [address], [facility] 09/27/2023 23:30:02 OBGyn Episode Ob Episode Information Episode Created Date Number of Fetuses Patient Bloodtype Patient rh Status Prepregnancy Weight lbs Domestic Partner Domestic Partner Phone Father Name Psychiatric Orderly Status 01/28/20 23 1 A Positive CLOSED Fetus Data First Name Last Name Admitted to NICU Weight (g) Sex Living Outcome Pediatric Complications Fetus ID Race Codes Race Delivery Type 3033.39 65 F true Full Term [id number] Vaginal Delivery Problems Problem Notes Problem Name Start Date End Date Resolution Snomed Code Not e Sickle cell trait 02032314 FO B neg. UC q trimester Cristhian Calculation Initial Cristhian Date Initial Exam Date Initial Exam Provider Initial Ultrasound Date Last Menstrual Period Date Ultra Sound Weeks Gestation 07/04/2023 01/27/2023 12/28/2022 09/27/2022 13 Eighteen To Twenty Week Cristhian Update Ultra Sound Date Fundal Height At Umbil Quickening Date Ultra Sound Latest Weeks Gestation Final Cristhian Confirmed By Final Cristhian Confirmed Date Final Cristhian Date Ultra Sound Latest Days Gestation 0 [email or web address] 01/27/2023 07/04/20 0 Pre-elvia Flowsheet Flowsheet Date 01/27/2023 Garcia Score Blood Edema Fundus Height Fundus Units Glucose Ketones Leukocytes Nitrite Labor Signs Protein Cervic Dilation Cervic Effacement Cervic Station Type Weight in lbs Pre/Post Dialysis Refused Weight 121.718343590520 BP Diastolic BP Location Tested BP Systolic BP Type 58 R arm 101 sitting Fetus Heart Rate Present Fetus Movement Comments This patient is a 27-year-ol d 3 para 1011 at 17 weeks gestation who presents for initial care. She is vaccinated for COVID. She got the flu vaccine, she will get the Tdap at 30 weeks. Discussed care in detail. She will begin care. Genetic testing was performed. She has no complaints today. Follow-up in 3 weeks. Flowsheet Date 02/15/2023 Garcia Score Blood Edema Fundus Height Fundus Units Glucose Ketones Leukocytes Nitrite Labor Signs Protein Cervic Dilation Cervic Effacement Cervic Station Type Weight in lbs Pre/Post Dialysis Refused BP Diastolic BP Location Tested BP Systolic BP Type Fetus Heart Rate Present Fetus Movement Comments Flowsheet Date 02/15/2023 Garcia Score Blood Edema Fundus Height Fundus Units Glucose Ketones Leukocytes Nitrite Labor Signs Protein Cervic Dilation Cervic Effacement Cervic Station neg trace none trace Type Weight in lbs Pre/Post Dialysis Refused Weight 123.314703776069 BP Diastolic BP Location Tested BP Systolic BP Type 59 96 Fetus Heart Rate Present Fetus Movement A Yes Comments Was seen in hospital for lum p behind her ear and was told it was an enlarged lymph node and treated with steroids x 5 days. States it has completely resolved. Otherwise doing well. Will have additional tubs for genetics drawn today. EIF on ultrasound. Pt aware and will await any further recommendations. Flowsheet Date 03/21/2023 Garcia Score Blood Edema Fundus Height Fundus Units Glucose Ketones Leukocytes Nitrite Labor Signs Protein Cervic Dilation Cervic Effacement Cervic Station Type Weight in lbs Pre/Post Dialysis Refused BP Diastolic BP Location Tested BP Systolic BP Type Fetus Heart Rate Present Fetus Movement Comments Flowsheet Date 03/21/2023 Garcia Score Blood Edema Fundus Height Fundus Units Glucose Ketones Leukocytes Nitrite Labor Signs Protein Cervic Dilation Cervic Effacement Cervic Station 25 Type Weight in lbs Pre/Post Dialysis Refused Weight 130.283958532496 BP Diastolic BP Location Tested BP Systolic BP Type 59 R arm 100 sitting Fetus Heart Rate Present A 144 Fetus Movement A Yes Comments impressive for infection, to treat with antibiotics, persistent nausea, to prescribe Zofran. EIF persists but not an issue. Flowsheet Date 04/12/2023 Garcia Score Blood Edema Fundus Height Fundus Units Glucose Ketones Leukocytes Nitrite Labor Signs Protein Cervic Dilation Cervic Effacement Cervic Station neg trace 28 trace trace Type Weight in lbs Pre/Post Dialysis Refused Weight 133.945276368720 BP Diastolic BP Location Tested BP Systolic BP Type 71 119 Fetus Heart Rate Present A 160 Fetus Movement A Yes Comments Doing very well, no concerns . GCT today. Discussed and encouraged Tdap. Uriine culture today for sickle cell trait. Routine care. Flowsheet Date 04/29/2023 Garcia Score Blood Edema Fundus Height Fundus Units Glucose Ketones Leukocytes Nitrite Labor Signs Protein Cervic Dilation Cervic Effacement Cervic Station neg trace 30 none trace Type Weight in lbs Pre/Post Dialysis Refused Weight 139.874970767376 BP Diastolic BP Location Tested BP Systolic BP Type 60 97 Fetus Heart Rate Present A 145 Fetus Movement A Yes Comments patient is having some acid reflux and swelling. rec tdap, call for preadmit next visit ok for tums, education and precautions done Flowsheet Date 05/13/2023 Garcia Score Blood Edema Fundus Height Fundus Units Glucose Ketones Leukocytes Nitrite Labor Signs Protein Cervic Dilation Cervic Effacement Cervic Station neg trace 28 none trace Type Weight in lbs Pre/Post Dialysis Refused Weight 140.683379760299 BP Diastolic BP Location Tested BP Systolic BP Type 64 102 Fetus Heart Rate Present A 150 Present Fetus Movement A Yes Comments patient has swelling. doing well, +FM, had a cold last week but feeling much better f/u 2 weeks with growth us, call for preadmit, plans to get tdap Flowsheet Date 05/26/2023 Garcia Score Blood Edema Fundus Height Fundus Units Glucose Ketones Leukocytes Nitrite Labor Signs Protein Cervic Dilation Cervic Effacement Cervic Station none trace Type Weight in lbs Pre/Post Dialysis Refused BP Diastolic BP Location Tested BP Systolic BP Type Fetus Heart Rate Present Fetus Movement Comments Flowsheet Date 05/30/2023 Garcia Score Blood Edema Fundus Height Fundus Units Glucose Ketones Leukocytes Nitrite Labor Signs Protein Cervic Dilation Cervic Effacement Cervic Station Type Weight in lbs Pre/Post Dialysis Refused Weight 145.0163395301 BP Diastolic BP Location Tested BP Systolic BP Type 63 R arm 104 sitting Fetus Heart Rate Present Fetus Movement A Yes Comments No complaints, no problems, normal follow-up ultrasound for growth and fluid. Flowsheet Date 06/07/2023 Garcia Score Blood Edema Fundus Height Fundus Units Glucose Ketones Leukocytes Nitrite Labor Signs Protein Cervic Dilation Cervic Effacement Cervic Station neg trace 34 none trace 1cm 20% -3 Type Weight in lbs Pre/Post Dialysis Refused Weight 147.840216395868 BP Diastolic BP Location Tested BP Systolic BP Type 63 104 Fetus Heart Rate Present A 150 Fetus Movement A Yes Comments Doing fine. NO contractions yet. Doing Tdap this week. GBS done. Flowsheet Date 06/14/2023 Garcia Score Blood Edema Fundus Height Fundus Units Glucose Ketones Leukocytes Nitrite Labor Signs Protein Cervic Dilation Cervic Effacement Cervic Station trace 36 2cm 40% -2 Type Weight in lbs Pre/Post Dialysis Refused Weight 146.372427124623 BP Diastolic BP Location Tested BP Systolic BP Type 66 111 Fetus Heart Rate Present A 145 Fetus Movement A Yes Comments Doing well except boil on ri ght perineum, deep to skin, tender, cannot drain- keflex. Tdap done. GBS neg. Is not interested in elective induction, wants to await spontaneous labor. Flowsheet Date 06/21/2023 Garcia Score Blood Edema Fundus Height Fundus Units Glucose Ketones Leukocytes Nitrite Labor Signs Protein Cervic Dilation Cervic Effacement Cervic Station neg none none trace Type Weight in lbs Pre/Post Dialysis Refused Weight 148.171072398382 BP Diastolic BP Location Tested BP Systolic BP Type 71 113 Fetus Heart Rate Present A 130 Fetus Movement A Yes Comments Doing well except abscess go t really bad this week. started to drain yesterday, but needs to drain more. see I and D note. No labor signs. Menstrual History Last Menstrual Date Menses Monthly On Bcp Conception Prior Menses Frequency Hcg Plus Date Menarche Onset Age 1109/27/2022 Genetic Screening And Infection History Question Response Note Mental Retardation/Autism false Patient's Age Will Be 35 Years Or Older At Estim ated Date of Delivery false Thalassemia ([place], Syriac, Mediterranean, Or Background): MCV < 80 false Neural Tube Defect (Meningomyelocele, Spina Bifi da, Or Anencephaly) false Congenital Heart Defect false Down Syndrome false Jey-Sachs (eg, Adventist, Cajun, Sami-Caspian) f alse Hermann Disease false Sickle Cell Disease Or Trait () false Hemophilia Or Other Blood Disorders false Muscular Dystrophy false Cystic Fibrosis false Carlie's Chorea false Intellectual Disability/Autism false If Yes, Was Person Tested For Fragile X? false Other Inherited Genetic Or Chromosomal Disorder false Maternal Metabolic Disorder (eg, Type 1 Diabetes , PKU) false Patient Or Baby's Father Had A Child With Defects Not Listed Above false Recurrent Loss, Or A Stillbirth false Medications (including Suppl ements, Vitamins, Herbs, OTC Drugs), Illicit/Recreational Drugs, Alcohol false If Yes, Agent(s) And Strength/Dosage false Any Other Genetic History false Live With Someone With TB Or Exposed To TB false Patient Or Partner Has History Of Genital Herpes false Rash Or Viral Illness Since Last Menstrual Perio d false History Of STD, Gonorrhea, Chlamydia, HPV, Syphi lis false Other Infection History false History of HIV false History of Hepatitis false Prior GBS-infected child false Hemoglobinopathy Or Carrier false Other Structural Defect false Recent Travel History Outside of Country false Delivery Information Delivery Date Delivery Type Labor Anesthesia Weeks Gestation Incision Type Labor Labor Length Hrs Delivered By Post Complications Tubal Sterilization Discharge Date Comments 3 Sponta neous None 39 false Ge Cuellar MD sickle cell trait carrier Discharge Information Feeding Method Contraceptive Method Maternal HG B and HCT Levels Ob Episode Information Episode Created Date Number of Fetuses Patient Bloodtype Patient rh Status Prepregnancy Weight lbs Domestic Partner Domestic Partner Phone Father Name Psychiatric Orderly Status 12/28/19 23 1 CLOSED Fetus Data First Name Last Name Admitted to NICU Weight (g) Sex Living Outcome Pediatric Complications Fetus ID Race Codes Race Delivery Type 3572.03 7 F Full Term [id number] Vaginal Delivery Cristhian Calculation Initial Cristhian Date Initial Exam Date Initial Exam Provider Initial Ultrasound Date Last Menstrual Period Date Ultra Sound Weeks Gestation 0 Eighteen To Twenty Week Cristhian Update Ultra Sound Date Fundal Height At Umbil Quickening Date Ultra Sound Latest Weeks Gestation Final Cristhian Confirmed By Final Cristhian Confirmed Date Final Cristhian Date Ultra Sound Latest Days Gestation 0 0 Menstrual History Last Menstrual Date Menses Monthly On Bcp Conception Prior Menses Frequency Hcg Plus Date Menarche Onset Age Delivery Information Delivery Date Delivery Type Labor Anesthesia Weeks Gestation Incision Type Labor Labor Length Hrs Delivered By Post Complications Tubal Sterilization Discharge Date Comments 1 39 Discharge Information Feeding Method Contraceptive Method Maternal HG B and HCT Levels Ob Episode Information Episode Created Date Number of Fetuses Patient Bloodtype Patient rh Status Prepregnancy Weight lbs Domestic Partner Domestic Partner Phone Father Name Psychiatric Orderly Status 12/28/19 23 1 CLOSED Fetus Data First Name Last Name Admitted to NICU Weight (g) Sex Living Outcome Pediatric Complications Fetus ID Race Codes Race Delivery Type , Induced [id number] Cristhian Calculation Initial Cristhian Date Initial Exam Date Initial Exam Provider Initial Ultrasound Date Last Menstrual Period Date Ultra Sound Weeks Gestation 0 Eighteen To Twenty Week Cristhian Update Ultra Sound Date Fundal Height At Umbil Quickening Date Ultra Sound Latest Weeks Gestation Final Cristhian Confirmed By Final Cristhian Confirmed Date Final Cristhian Date Ultra Sound Latest Days Gestation 0 0 Menstrual History Last Menstrual Date Menses Monthly On Bcp Conception Prior Menses Frequency Hcg Plus Date Menarche Onset Age Delivery Information Delivery Date Delivery Type Labor Anesthesia Weeks Gestation Incision Type Labor Labor Length Hrs Delivered By Post Complications Tubal Sterilization Discharge Date Comments 9 Discharge Information Feeding Method Contraceptive Method Maternal HG B and HCT Levels
--- OUTSIDE RECORDS SUMMARY | 2025-02-06 13:26 | XMS_ITS | Referral Summary ---
Author Organization [facility] Address [address] [place] [id number] Care Team Providers Care Interior Design Consultant Name Role Phone No, Physician Primary Care Provider Allergies Active Allergy Reactions Criticality Noted Date Comments Sulfamethoxazole-Trimethoprim Rash Medium 2017 Doxycycline Hives Medium Penicillins Medications No known medications Social History Tobacco Use Types Packs/Day Years Used Date Smoking Tobacco: Never Smokeless Tobacco: Never Tobacco Cessation:Counseling Given: Not Answered Alcohol Use Standard Drinks/Week Comments Not Currently 0 (1 standard drink = 0.6 oz pur e alcohol) Personal Safety Answer Date Recorded Getting School Help Needed Not on file 06/30 Comments Unknown Sex and Gender Information Value Date Recorded Sex Assigned at Not on file 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 Gender Identity Not on file Sexual Orientation Not on file Last Filed Vital Signs Vital Sign Reading Time Taken Comments Blood Pressure 121/68 06/03/2023 1:25 PM CDT Pulse 77 06/03/2023 1:25 PM CDT Temperature 36.6 C (97.8 F) 06/03/2023 11:35 AM CDT Respiratory Rate 18 06/03/2023 11:35 AM CDT Oxygen Saturation 100% 06/03/2023 1:25 PM CDT Inhaled Oxygen Concentration - - Weight 68 kg (150 lb) 06/03/2023 11:35 AM CDT Height 180.3 cm (5' 11 ) 06/03/2023 11:35 AM CDT Body Mass Index 20.92 06/03/2023 11:35 AM CDT Plan of Treatment Not on file Insurance [facility] Care Teams Interior Design Consultant Relationship Specialty Start Date End Date No, Physician PCP - General 05/13/18
--- OUTSIDE RECORDS SUMMARY | 2025-02-06 13:26 | XMS_ITS | Clinical Summary ---
Author Organization [facility] Address [address] [facility] [place] [address] Care Team Providers Care Chart Snatcher Name Role Phone Unavailable Primary Care Provider Unavailabl e Source Comments [facility],non-owned Affiliates and Associated Physician Practices is amultiple site organization consisting of ambulatory clinics and hospital sitesin [place], [place], [place] and [place]. This disclosure is being madepursuant to the Care Everywhere program and may not contain all information available regarding this patient. Last updated 18.[facility] Allergies Active Allergy Reactions Criticality Noted Date Comments Penicillins Urticaria Medium 02/11/2021 Doxycycline Urticaria Medium 02/18/2021 Sulfa Drugs Urticaria Medium 02/11/2021 Medications * Be aware that medications may not be up to date on this document. Alwaysverify current medications with the patient. Medication Sig Dispensed Refills Start Date End Date Status Vit-DSS-Fe Fum-FA (SE- 19) 29-1 MG TABS Take 1 tablet by mouth once daily 30 tablet 11 02/18/2021 Active Additional Information Patient not taking.Reported on 07/21/2021 acetaminophen (TYLENOL) 500 MG tablet Take 2 (two) tablets by mouth every 6 hours as needed Maximum allowable Acetaminophen amount = 4 Grams (4000 mg) / 24 hours. 07/03/2021 Active Additional Information Patient not taking.Reported on 07/21/2021 ibuprofen (MOTRIN) 600 MG tablet Take 1 (one) tablet by mouth every 6 hours 40 tablet 07/03/2021 Active Additional Information Patient not taking.Reported on 07/21/2021 docusate sodium (COLACE) 100 MG capsule Take 1 (one) capsule by mouth 2 times daily 60 capsule 07/03/2021 Active Additional Information Patient not taking.Reported on 07/21/2021 norethindrone (ORTHO MICRONOR; NOR-QD; JOSEE; DEREK; SAMYM-BE; CLARA; JOLIVETTE) 0.35 MG tabletIndications: care and examination of lactating mother (HCC) Take 1 (one) tablet by mouth once daily 3 packet 4 08/07/2021 Active Active Problems Problem Noted Date Diagnosed Date state, incidental 07/01/2021 Abdominal pain 06/05/2021 Immunizations Name Administration Dates Next Due Schematic Labs primary Monoval ent 12+ yr 0.3ml 06/22/2022 DTaP VACCINE IM (6wk-6yrs) 09/14/2000 HEP A PEDS 2 DOSE 03/06/2015 HEP A VACCINE, ADULT 11/29/2017,07/04/2017 HEP B VACCINE, ADULT 3 DOSE 06/27/2017 HEP B VACCINE, PED/ADOL 01/08/1997,1996, MENINGOCOCCAL VACCINE 05/26/2010 MMR 09/14/2000,1997 POLIO IPV 09/14/2000 POLIO OPV 10/15/1997, 7,01/08/1997,09/26 TDAP (7yrs+) 04/07/2021 Family History Medical History Relation Name Comments Hypertension Maternal Grandfather Sickle Cell Trait Mother Relation Name Status Comments Maternal Grandfather Mother Social History Tobacco Use Types Packs/Day Years Used Date Smoking Tobacco: Never Smokeless Tobacco: Never Alcohol Use Standard Drinks/Week Comments Not Currently 0 (1 standard drink = 0.6 oz pur e alcohol) [place] Depression Scale Answer Date Recorded Last EPDS Total Score Not on file 08/07/2021 The thought of harming myself has occurred to me . Never 08/07/2021 Sex and Gender Information Value Date Recorded Sex Assigned at Not on file Gender Identity Not on file Sexual Orientation Not on file Last Filed Vital Signs Vital Sign Reading Time Taken Comments Blood Pressure 102/76 08/07/2021 2:38 PM CDT Pulse 88 03/10/2021 3:54 PM CDT Temperature 36.7 C (98.1 F) 07/03/2021 7:44 AM CDT Respiratory Rate 18 07/03/2021 7:44 AM CDT Oxygen Saturation 99% 2021 11:24 PM CDT Inhaled Oxygen Concentration - - Weight 59.4 kg (131 lb) 08/07/2021 2:38 PM CDT Height 167.6 cm (5' 6 ) 08/07/2021 2:38 PM CDT Body Mass Index 21.14 08/07/2021 2:38 PM CDT Plan of Treatment Health Maintenance Due Date Last Done Comments PAP SMEAR 1996 COVID-19 VACCINE (2 - season) 2024 06/22/2022 INFLUENZA VACCINE (#1) 2024 DEPRESSION SCREENING 11/07/2024 DTAP/TDAP/TD VACCINES (3 - Td or Tdap) 04/07/2031 04/07/2021, 09/14/2000 ZOSTER VACCINE (1 of 2) 2046 MENINGOCOCCAL GROUPS A/C/Y/W VACCINE Aged Out 05/26/2010 No longer eligible based on patient's age to complete this topic HEPATITIS B VACCINE Completed 06/27/2017, 01/08/1997, 1996, Additional history exists HEPATITIS C SCREENING Completed 07/01/2021 HIV SCREENING Completed 07/01/2021 HIB VACCINE Aged Out No longer eligi ble based on patient's age to complete this topic HPV VACCINE Aged Out No longer eligi ble based on patient's age to complete this topic MENINGOCOCCAL (Group B) VACCINE SHARED DECISION-MAKING Aged Out No longer eligible based on patient's age to complete this topic PNEUMOCOCCAL VACCINE Aged Out No long er eligible based on patient's age to complete this topic Procedures Procedure Name Priority Date/Time Associated Diagnosis Comments HEPATITIS C ANTIBODY STAT 07/01/2021 2:52 AM CDT state, incidental HIV-1 HIV-2 ANTIBODY + HIV P24 AG PANEL STAT 07/01/2021 2:52 AM CDT state, incidental from Last 3 Months or Most Recently Relevant to Health Maintenance Results * HIV-1 HIV-2 ANTIBODY + HIV P24 AG PANEL (07/01/2021 2:52 AM CDT) HIV1/2 Ab + P24 Ag Non Reactive Non Reactive 07/01/2021 3:51 AM CDT [facility] Blood BLOOD SPECIMEN / Unknown Venipuncture / Unknown 07/01/2021 2:52 AM CDT 07/01/2021 3:08 AM CDT Narrative [facility] - 07/01/2021 3:51 AM CDT No Laboratory evidence of HIV infection. Amalia Gutiérrez DO LAB - CHEMISTRY ORDE RADHA Performing Organization Address [facility] Co de Phone Number [facility] [address] [place] [address] * HEPATITIS C ANTIBODY (07/01/2021 2:52 AM CDT) Pathologist [facility] HCV Antibody Screen Non Reactive Non Reactive 07/01/2021 3:49 AM CDT [facility] Blood BLOOD SPECIMEN / Unknown Venipuncture / Unknown 07/01/2021 2:52 AM CDT 07/01/2021 3:08 AM CDT Narrative [facility] - 07/01/2021 3:49 AM CDT Non Reactive - Antibodies to Hepatitis C virus (HCV) were not detected, result does not exclude early acute HCV infection. Amalia Gutiérrez DO LAB - CHEMISTRY ANA PAULA GARCIA Performing Organization Address [facility] Co de Phone Number [facility] [address] [place] [address] from Last 3 Months or Most Recently Relevant to Health Maintenance Advance Directives * Full Code (Latest Code Status on File) Date Activated Date Inactivated Comments 07/01/2021 2:51 AM 07/03/2021 1:15 PM * Full Code Date Activated Date Inactivated Comments 07/01/2021 1:35 AM 07/01/2021 2:50 AM * Full Code Date Activated Date Inactivated Comments 06/05/2021 11:15 AM 06/05/2021 1:22 PM
--- OUTSIDE RECORDS SUMMARY | 2025-02-06 13:26 | XMS_ITS | Clinical Summary ---
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 Gender Identity Not on file Sexual Orientation Not on file Obstetrics History Para Term AB IAB SAB Ectopic Multiple Livin g Live Births 1 Date Outcome GA Total Labor Labor/2nd/3rd Weight Sex Type Anes PTL Emily A1 A5 Name Clin Last Filed Vital Signs Vital Sign Reading [...] 06/03/2023 11:35 AM CDT Plan of Treatment Health Maintenance Due Date Last Done Comments Cervical Cancer Screening 1996 Depression Screening 1996 Hepatitis C Screening 1996 Varicella Vaccines (1 of 2 - 13+ 2-dose series) 2009 Regular Well Visit/Exam 18-64 2014 Influenza Vaccine (Season Ended) 2025 DTaP/Tdap/Td Vaccine (7 - Td or Tdap) 04/07/2031 04/07/2021, 05/26/2010, 09/14/2000, Additional history exists Hepatitis B Screening Completed 06/27/2017 , 01/08/1997, 1996, Additional history exists HPV Vaccines Aged Out No longer eligi ble based on patient's age to complete this topic Pneumococcal vaccine <65 Aged Out No longer eligible based on patient's age to complete this topic Insurance [facility] Care Teams Shredder Picker Relationship Specialty Start Date End Date No, Physician PCP - General 05/13/18
[2025-02-06 15:22] LABS: INR 1.1; Prothrombin Time 14.5 Seconds (11.1-14.7)
[2025-02-06 15:51] LABS: HIV 1/2 Ab P24 Ag Result Negative (Negative)
[2025-02-06 16:41] LABS: Hepatitis C Virus Antibody Negative (Negative)
[2025-02-06 16:48] LABS: Hemoglobin A1C 5.7 % (<5.7)
== END 2025-02-06 11:43 | disposition home or self-care (01) ==
DX: Z01.818 Encounter for other preprocedural examination (principal)
CPT/HCPCS: 36415; 71046; 83036; 84443; 85610; 85730; 86703; 86803; G0432